=== PATIENT | male | born 1970 | race Caucasian/White ===

== ENCOUNTER 2018-10-28 10:15 | Emergency (ER) | payer SELFPAY ==
[~2018-10-28] VITALS: Ht 165.1 cm; Wt 85.7 kg
--- NOTE | 2018-10-28 10:30 | NUR ---
GILBERTO BLOCK FOR C/O ANXIETY AND PALPITATIONS. STATES HE USED [facility] YESTERDAY AND CONSUMED "MONSTER DRINKS" TODAY. 12 LEAD EKG DONE, PLACED ON CONTINUOUS CARDIAC MONITORING...
[2018-10-28] MEDS ORDERED: LORAZEPAM 2 MG/1 ML VIAL ONE (10:44)
[2018-10-28] MEDS ORDERED: LORAZEPAM 2 MG/1 ML VIAL IV ONE (10:45)
[2018-10-28 10:49] LABS: BASOPHILS % (AUTO) 0.6 % (0.0-2.0); EOSINOPHILS # (AUTO) 0.2 K/uL (0.0-0.7); EOSINOPHILS % (AUTO) 2.3 % (0.0-7.0); HEMATOCRIT 40.6 % (36.7-47.1); HEMOGLOBIN 14.3 g/dL (12.5-16.3); LYMPHOCYTES # (AUTO) 1.8 K/uL (20.0-40.0); LYMPHOCYTES % (AUTO) 25.1 % (20.5-51.5); MEAN CORPUSCULAR HEMOGLOBIN 32.6 uug (23.8-33.4); MEAN CORPUSCULAR HGB CONC 35 g/dL (32.5-36.3); MEAN CORPUSCULAR VOLUME 92.4 fL (73.0-96.2); MONOCYTES # (AUTO) 0.4 K/uL (2.0-10.0); MONOCYTES % (AUTO) 5.9 % (0.0-11.0); NEUTROPHILS # (AUTO) 4.8 K/uL (1.8-8.9); NEUTROPHILS % (AUTO) 66.1 % (38.5-71.5); PLATELET COUNT (AUTO) 269 K/uL (152-348); RED BLOOD CELL COUNT(AUTO) 4.39 MIL/uL (4.06-5.63); WHITE BLOOD COUNT (AUTO) 7.2 K/uL (3.6-10.2)
[2018-10-28 10:54] LABS: CARBON DIOXIDE 28 mmol/L (21-32); CHLORIDE 99 mmol/L (98-107); CREATININE 1.1 mg/dL (0.6-1.3); GLUCOSE 158 mg/dL (74-106); POTASSIUM 3.5 mmol/L (3.5-5.1); UREA NITROGEN, BLOOD 17 mg/dL (7-18)
[2018-10-28 11:00] LABS: ALANINE AMINOTRANSFERASE 23 U/L (16-63); ALKALINE PHOSPHATASE 93 U/L (50-136); ASPARTATE AMINOTRANSFERASE 14 U/L (15-37); BILIRUBIN,DIRECT 0.1 mg/dL (0.0-0.2); BILIRUBIN,TOTAL 0.4 mg/dL (0.2-1.0); ETHANOL < 3 MG/DL (0-0)
[2018-10-28 11:13] LABS: THYROID STIMULATING HORMONE 1.584 mIU/mL (0.358-3.740)
--- NOTE | 2018-10-28 12:32 | NUR ---
PATIENT STATES HE "FEELS BETTER". DC AND F/U INSTRUCTIONS GIVEN AND EXPLAINED TO PATIENT WHO STATES HE UNDERSTANDS ALL INSTRUCTIONS. INSTRUCTED PATIENT NOT TO DRIVE TODAY. STATES HE HAS SOMEONE COMING TO ER TO PICK HIM UP. HE CAME BY [facility] SO HIS CAR IS NOT HERE ANYHOW....
--- NOTE | 2018-10-28 12:33 | NUR ---
IV removed. Catheter intact and site benign. Pressure and 4x4 gauze applied to site. No bleeding noted.
== END 2018-10-28 12:35 | disposition home or self-care (01) ==
LOC: ER 10:15
DX: R42 Dizziness and giddiness (principal); R00.2 Palpitations; F15.10 Other stimulant abuse, uncomplicated
CPT/HCPCS: 36415; 80048; 80076; 84443; 85025; 93005; 96374; 99284; G0480; J2060; A4663